=== PATIENT | female | born 1955 | race Caucasian/White ===

== ENCOUNTER 2017-08-06 18:23 | Emergency (ER) | payer SELFPAY ==
[~2017-08-06] VITALS: Ht 167.6 cm; Wt 70.0 kg
[~2017-08-06 18:23] MED LIST: ACET1TAB40 PO; BABY ASA; BROMOCRIPTINE; CEPH-443 PO; DOCU-144 PO; IBUP400T22 PO; SYNTHROID; TRAM50TA2 PO; VITAMINS; actonel PO; nortriptyline PO
[2017-08-06 18:29] VITALS: Ht 167.6 cm; Wt 70.0 kg
== END 2017-08-06 22:06 | disposition left against medical advice (07) ==
LOC: FTE 18:23 → E/R 22:06
DX: Z53.21 Procedure and treatment not carried out due to patient leaving prior to being seen by health care provider (principal)

== ENCOUNTER 2018-01-31 16:34 | Emergency (ER) | END 2018-01-31 19:25 | disposition left against medical advice (07) ==